=== PATIENT | female | born 1980 | race Caucasian/White ===

== ENCOUNTER 2019-07-31 01:59 | Observation (INO) | payer OTHER, SELFPAY ==
[2019-07-31] MEDS ORDERED: Morphine 4 MG/ML VIAL ONE (02:14)
[2019-07-31] MEDS ORDERED: Pantoprazole 40 MG VIAL ONE (02:46)
[2019-07-31] MEDS ORDERED: Acetaminophen 650 MG Suppository PR PRN (03:13)
[2019-07-31] MEDS ORDERED: Acetaminophen 325 MG TAB PO PRN (03:13)
[2019-07-31] MEDS ORDERED: Sodium Chloride 0.9% 1,000 ML IV SCH (03:15)
--- NOTE | 2019-07-31 03:37 | PDOC.HHP ---
Hospitalist HPI - History of Present Illness diarrhea History of Present Illness: Ms Ledezma is a pleasant 38 year old female with PMH of a possible ulcer. She presents to the ER for diarrhea and nausea x 24 hours. She has had 10+ episodes of diarrhea at this time, denies mucous or blood in stools and says it is just like "water" coming out. Denies vomiting but has severe nausea when taking anything PO. She also states she has not had fever, exposure to ill contacts, no travel, no new medications. Her pain begins in her mid upper epigastric area and travels down to her lower abdomen. She feels "bloated" and confirms minimal relief with the provided pain medications. PCP: Moses Romero ED Course: She was first seen in the ED in [place] where they completed an abdominal CT and lab work. They administered sucralfate 10 ml, fentanyl 50mcg, metronidazole 500 mg, cipro 500 mg, potassium chloride 40 meq, zofran 4 mg, 1L NS, and morphine 4 mg. She was transferred here for pain control and GI consult. Once transferred here she was given an additional morphine 4mg and admitted to medical unit. Hospitalist ROS - Review of Systems Constitutional: denies: fever, chills, sweats, weakness, malaise, other Eyes: denies: pain, vision change, conjunctivae inflammation, eyelid inflammation, redness, other ENT: denies: ear pain, ear discharge, nose pain, nose discharge, nose congestion , mouth pain, mouth swelling, throat pain, throat swelling, other Respiratory: denies: cough, dry, shortness of breath, hemoptysis, SOB with excertion, pleuritic pain, sputum, wheezing, other Cardiovascular: denies: chest pain, palpitations, orthopnea, paroxysmal noc. dyspnea, edema, light headedness, other Gastrointestinal: reports: nausea, abdominal pain, diarrhea Genitourinary: denies: dysuria, frequency, incontinence, hematuria, retention, other Musculoskeletal: denies: neck pain, shoulder pain, arm pain, back pain, hand pain, leg pain, foot pain, other Skin: denies: rash, lesions, gertrude, bruising, other All other systems reviewed; all pertinent +/- noted in HPI/Subj - Medication Medications: Allergies: amxicillin, PCN Home medications: Prilosec OTC daily Hospitalist History - Past Medical History Source: patient Cardiac: reports: no pertinent history Pulmonary: reports: no pertinent history ENGINEERING SPECIALIST: reports: no pertinent history Gastrointestinal: reports: Other (ulcer) Heme/Onc: reports: no pertinent history Hepatobiliary: reports: no pertinent history Psych: reports: no pertinent history Musculoskeletal: reports: no pertinent history Rheumatologic: reports: no pertinent history Infectious Disease: reports: no pertinent history ENT: reports: no pertinent history Renal/: reports: no pertinent history Endocrine: reports: no pertinent history Dermatology: reports: no pertinent history - Past Surgical History Past Surgical History: reports: Tubal Ligation Other Surgical History: L elbow surgery Novasure ablation - Family History Family History: reports: no pertinent history - Social History Smoking Status: Never smoker Alcohol: reports: None Drugs: reports: none Living Situation: With Family Activity level: independent ambulation - Exam General Appearance: NAD, awake alert General - other findings: VS: BP 120/79 P 83 RR 20 T 98.8 O2 Sat 96% RA Eye: PERRL ENT: normocephalic atraumatic, dry oral mucosa Neck: supple, symmetric, no JVD, no lymphadenopathy Heart: RRR, no murmur, no gallops, no rubs Respiratory: CTAB, no wheezes, no rales, no ronchi Gastrointestinal: tender to palpation, distended Gastrointestinal - other findings: hyperactive Extremities: no cyanosis, no edema Psychiatric: normal affect, normal behavior Hospitalist Results - Labs Result Diagrams: 07/31/19 05:17 07/31/19 05:17 Lab results: Laboratory Tests from [facility] 07/30/19 07/30/19 07/30/19 21:40 21:40 21:40 WBC 6.7 RBC 5.10 Hgb 14.5 Hct 44.9 Sodium 140 Potassium 3.0 L Chloride 105 Anion Gap 14 BUN 10 Creatinine 1.06 Estimated GFR (MDRD) 58 Glucose 135 H Calcium 9.1 Magnesium 2.0 - Radiology Interpretation CT scan - abdomen Status: image reviewed by tn Hospitalist H&P A/P - Problem (1) Ileitis Code(s): K52.9 - NONINFECTIVE GASTROENTERITIS AND COLITIS, UNSPECIFIED Status : Acute (2) Diarrhea Code(s): R19.7 - DIARRHEA, UNSPECIFIED Status: Acute (3) Nausea Code(s): R11.0 - NAUSEA Status: Acute (4) Hypokalemia Code(s): E87.6 - HYPOKALEMIA Status: Acute - Plan Plan: Ileitis: Consult GI in am NPO IVF Continue IV antibiotics Hypokalemia: Continue K replacement- most likely from diarrhea recheck BMP and CBC in am Diarrhea: Will send stool for studies to rule out other infectious processes Nausea: Treat with PRNs, hopefully will subside soon GI and DVT prophylaxis Full code Surrogate decision maker: , Bo Lofton [phone]
[2019-07-31] MEDS ORDERED: Sodium Chloride 0.9% (PF) 10 ML VIAL FS PRN (03:50)
[2019-07-31] MEDS: Dextrose 5 %-0.45 % NaCl 1,000 ML IV SCH ×4 (05:17→19:37)
[2019-07-31] MEDS: Ciprofloxacin 500 MG TAB PO SCH ×2 (05:18→19:35)
[2019-07-31 05:36] VITALS: BMI 31.6
[2019-07-31 05:40] LABS: #Lymphocytes 1.1 thou/uL (1.20-3.40); #Monocytes 0.4 thou/uL (0.11-0.59); #Neutrophils 3.7 thou/uL (1.40-6.50); %Basophils 0.4 % (0.0-1.0); %Eosinophils 0.4 % (0.0-10.0); %Lymphocytes 20.3 % (21.0-51.0); %Monocytes 7.2 % (0.0-10.0); %Neutrophils 71.7 % (42.0-75.0); Hemoglobin 12.9 g/dL (12.0-16.0); Mean Corpuscular HGB CONC 33.5 g/dL (32.0-36.0); Mean Corpuscular Hemoglobin 28.9 pg (27.0-31.0); Mean Corpuscular Volume 86.3 fL (78.0-98.0); Mean Platelet Volume 6.9 fL (7.4-10.4); Platelet Count 200 thou/uL (130-400); RBC Distribution Width 12.3 % (11.5-14.5); Red Blood Cell (RBC) Count 4.48 mill/uL (4.20-5.40); White Blood Cell (WBC) Count 5.2 thou/uL (4.8-10.8)
[2019-07-31 05:54] LABS: Anion Gap 9 mmol/L (10-20); BUN (Urea Nitrogen) 9 mg/dL (7.0-18.7); Calc. Creatinine Clearance 118 mL/min (70-130); Calcium 7.7 mg/dL (7.8-10.44); Carbon Dioxide 24 mmol/L (22-29); Chloride 109 mmol/L (98-107); Estimated GFR-MDRD 80; Glucose 103 mg/dL (70-105); Potassium 3.4 mmol/L (3.5-5.1); Sodium 139 mmol/L (136-145)
[2019-07-31] MEDS: Morphine 2 MG/ML SYRINGE SLOW IVP PRN ×3 (06:45→19:36)
[2019-07-31] MEDS: Pantoprazole 40 MG VIAL IVP SCH (08:36)
[2019-07-31] MEDS: metroNIDAZOLE 500 MG in Premix Bag 1 BAG IVPB SCH ×2 (08:36→15:46)
[2019-07-31] MEDS ORDERED: Famotidine/PF 20 mg/2ml Vial SLOW IVP SCH (09:00)
[2019-07-31] MEDS ORDERED: Potassium Chloride 20 MEQ TAB PO SCH (10:15)
[2019-07-31] MEDS ORDERED: Sodium Chloride 0.9% 500 ML IV SCH (10:30)
--- NOTE | 2019-07-31 17:30 | CON ---
DATE OF CONSULTATION: 07/31/2019 CHIEF COMPLAINT: Abdominal pain and diarrhea. HISTORY OF PRESENT ILLNESS: Ms. Ledezma is a 38-year-old woman, who woke up at 2 o'clock yesterday morning with the urge to have a bowel movement. She had multiple brown liquidy stools. She then had onset of sharp to cramping pain that went all the way down from the epigastric region to the periumbilical region and across her lower abdomen as well. She has had tenderness over the right lower quadrant with that also. She had nausea, but no vomiting. No obvious exposures to foods out of the ordinary or other sick contacts. She has had no fever with this. No blood in the stool or black stools. Her weight has been stable. She has not had chronic problems with abdominal pain or diarrhea; however, she has had some chronic reflux symptoms. She takes ibuprofen once a week for headaches. She has had some epigastric bloating, reflux, and indigestion, for which, she has been taking ranitidine daily over the last 2 years. Couple of years ago, she went in with those symptoms originally with the epigastric discomfort and she was clinically told that she had a peptic ulcer and she started the ranitidine at that point. She stopped taking the ranitidine 2 weeks ago as it has been pulled from the shelves. She instead started taking Prilosec once daily couple of weeks ago. She has not been having heartburn, but it was concerned that the change in medicine could be related to her acute symptoms. PAST MEDICAL HISTORY: Headache. PAST SURGICAL HISTORY: She had cervical ablation and tubal ligation. MEDICATIONS: Prior to admission, Prilosec OTC once daily. She takes ibuprofen around once per week. ALLERGIES: PENICILLIN. FAMILY HISTORY: Negative for GI malignancy or inflammatory bowel disease. SOCIAL HISTORY: She has smoked intermittently in the past, but not recently. No drugs. No alcohol. REVIEW OF SYSTEMS: Negative x10 systems reviewed except as stated in the history of present illness. PHYSICAL EXAMINATION: VITAL SIGNS: Temperature 99.2, pulse 89, blood pressure 112/75. GENERAL: She is in no acute distress. Alert and oriented x3. HEENT: Eyes have no scleral icterus. Oropharynx is clear without lesions. No cervical or supraclavicular lymphadenopathy. LUNGS: Clear to auscultation bilaterally. HEART: Regular rate and rhythm without murmur. ABDOMEN: Soft. She is diffusely tender to palpation, but more so in the right lower quadrant. Her bowel sounds are present. EXTREMITIES: No lower extremity edema. Cranial nerves are grossly intact. LABORATORY DATA: White blood cell count 5.2, hemoglobin 12.9, platelets 200. Creatinine 0.8, bilirubin 0.5, AST 12, ALT 14, alkaline phosphatase 71, albumin 4.0, lipase 49. She had a CT scan of the abdomen and pelvis last night, which showed marked thickening of the terminal ileum. Fluid was noted in the cecum and right colon. IMPRESSION: 1. Periumbilical to right lower quadrant abdominal pain. 2. Acute liquidy nonbloody diarrhea. 3. Abnormal CT scan showing thickening of the terminal ileum. Overall, these findings are most consistent with an acute infectious gastroenteritis. Her stool studies are currently pending. Given the short duration of less than 2 days of symptoms, it is unlikely that she has had a new sudden onset of inflammatory bowel disease at age 38. She has had some chronic reflux symptoms over the last couple of years and it is possible that this is the presentation of Crohn's. RECOMMENDATIONS: 1. Await stool studies. 2. Support with IV fluids and advance to clear liquid diet as she tolerates. 3. She is currently being covered with ciprofloxacin and metronidazole. 4. If she fails to improve from an acute infectious gastroenteritis standpoint, appears to be showing more of a chronic pattern, then upper and lower endoscopy can be performed. I would rather do this in a couple of weeks rather than the immediate setting. Either way, I think she should ultimately undergo colonoscopy at least given the changes on CT scan, but again, this would be better delayed until after an acute process would have time to resolve. There is no indication for steroids. Job ID: [id number]
[2019-08-01] MEDS: metroNIDAZOLE 500 MG in Premix Bag 1 BAG IVPB SCH ×4 (00:52→23:58)
[2019-08-01] MEDS: Dextrose 5 %-0.45 % NaCl 1,000 ML IV SCH ×3 (06:12→16:16)
[2019-08-01] MEDS: Ciprofloxacin 500 MG TAB PO SCH ×2 (06:12→20:13)
[2019-08-01 06:49] LABS: Hemoglobin 13.1 g/dL (12.0-16.0); Mean Corpuscular HGB CONC 33.5 g/dL (32.0-36.0); Mean Corpuscular Hemoglobin 29.1 pg (27.0-31.0); Mean Corpuscular Volume 86.8 fL (78.0-98.0); Mean Platelet Volume 6.7 fL (7.4-10.4); Platelet Count 201 thou/uL (130-400); RBC Distribution Width 12.2 % (11.5-14.5); White Blood Cell (WBC) Count 5.4 thou/uL (4.8-10.8)
[2019-08-01 07:06] LABS: Anion Gap 9 mmol/L (10-20); BUN (Urea Nitrogen) Less than 4 mg/dL (7.0-18.7); Calc. Creatinine Clearance 126 mL/min (70-130); Carbon Dioxide 23 mmol/L (22-29); Chloride 110 mmol/L (98-107); Estimated GFR-MDRD 86; Glucose 100 mg/dL (70-105); Potassium 3.2 mmol/L (3.5-5.1); Sodium 139 mmol/L (136-145)
[2019-08-01] MEDS: Pantoprazole 40 MG VIAL IVP SCH (08:13)
[2019-08-01 09:22] LABS: Band 6 % (5-11); Eosinophils 3 % (0-10); Lymphocytes 26 % (21-51); MDiff Complete? YES; Monocytes 2 % (0-10); Neutrophil 57 % (42-75); Platelet Morphology Comment Appears Adequate; RBC Morphology Normal; Reactive Lymphocytes 6 % (0-10)
--- NOTE | 2019-08-01 11:38 | PRG ---
DATE OF SERVICE: SUBJECTIVE: The patient feels much better. There is resolution of abdominal pain. Her diarrhea is less in term of volume and frequency, but still liquidy. She is tolerating liquid diet. PHYSICAL EXAMINATION: VITAL SIGNS: Temperature is 98.2, blood pressure 122/79, pulse of 83. GENERAL: She is alert, conversant, does not appear in any distress. HEENT: Shows anicteric sclerae. Oropharynx is clear and moist. NECK: Supple. CV: Shows normal S1, S2. Regular rate and rhythm. CHEST: Shows breath sounds. ABDOMEN: Soft, mildly protuberant. No distention. No tympany. There is some mild tenderness. No guarding or rebound. She has active bowel sounds. EXTREMITIES: Show no edema. LABORATORY DATA: WBCs 5.4, hemoglobin 13.1, platelet count of 201. Sodium 139, potassium 3.2, chloride 110, CO2 of 23, creatinine 0.75. Stool lactoferrin is positive. Campylobacter antigen negative. O and P positive for cryptosporidium antigen. Stool culture showed normal enteric arina and stool C diff antigen and toxin are negative. ASSESSMENT: Acute onset abdominal pain associated with nausea, vomiting, diarrhea with CT finding of distal ileitis. Symptomatically, she is much better with resolution of pain, nausea, vomiting, and diarrhea is becoming much less. Cryptosporidium antigen is positive, but typically this does not cause visible enteritis or ileitis. Cryptosporidium infection tends to be a self limiting diarrheal illness in immune competent host and just require supportive therapy. Crohn disease is a possibility but appears to be unlikely at this point. RECOMMENDATION: 1. Advance diet and activity. 2. The patient can be discharged tomorrow if she continues to improve and tolerate diet with outpatient followup with Dr. Salazar. If symptoms persists, outpatient endoscopy can be considered. Job ID: [id number] [facility]
--- NOTE | 2019-08-01 13:58 | PDOC.HOSPP ---
- Subjective Encounter Date: 08/01/19 Encounter Time: 10:45 Subjective: had 3 episodes of diarrhea from this am, feels much better than yesterday no nausea, has occasional abd colic on movement - Objective Vital Signs & Weight: Vital Signs (12 hours) Temp Pulse Resp BP BP Pulse Ox 08/01/19 08:00 98 08/01/19 07:44 98.2 F 83 17 122/79 98 08/01/19 04:00 98.2 F 77 16 150/67 H 98 Weight Admit Weight 173 lb Weight 173 lb 3 oz I&O: 07/31/19 08/01/19 08/02/19 06:59 06:59 06:59 Intake Total 2780 240 Balance 2780 240 Result Diagrams: 08/01/19 06:20 08/01/19 06:20 Hospitalist ROS - Medication Medications: Active Medications Generic Name Dose Route Start Last Admin Trade Name Freq PRN Reason Stop Dose Admin Acetaminophen 650 mg 07/31/19 03:13 07/31/19 08:49 Tylenol PO 650 mg Q4H PRN Administration Headache/Fever/Mild Pain (1-3) Ciprofloxacin 500 mg 07/31/19 06:00 08/01/19 06:12 Cipro PO 500 mg 0600,2000 NICOLE Administration Metronidazole 500 mg/ Device 100 mls @ 100 mls/hr 07/31/19 08:00 08/01/19 08: 13 IVPB 100 mls 0800,1600,[id number] NICOLE Administration Dextrose/Sodium Chloride 1,000 mls @ 100 mls/hr 07/31/19 03:30 08/01/19 09:59 D5 1/2 Ns IV Not Given .Q10H NICOLE Morphine Sulfate 2 mg 07/31/19 03:22 07/31/19 19:36 Morphine SLOW IVP 2 mg Q4H PRN Administration Severe Pain (7-10) Pantoprazole Sodium 40 mg 07/31/19 09:00 08/01/19 08:13 Protonix IVP 40 mg DAILY NICOLE Administration - Exam General Appearance: awake alert Eye: PERRL, anicteric sclera ENT: no oropharyngeal lesions, moist mucosa Neck: supple, no JVD Heart: RRR, no murmur Respiratory: no wheezes, no rales Gastrointestinal: soft, non-distended, normal bowel sounds, no guarding, no rigidity Extremities: no cyanosis, no edema Neurological: cranial nerve grossly intact, no focal deficits Psychiatric: normal affect, A&O x 3 Hosp A/P (1) Gastroenteritis Code(s): K52.9 - NONINFECTIVE GASTROENTERITIS AND COLITIS, UNSPECIFIED Status : Acute (2) Moderate dehydration Code(s): E86.0 - DEHYDRATION Status: Resolved (3) Intractable nausea and vomiting Code(s): R11.2 - NAUSEA WITH VOMITING, UNSPECIFIED Status: Resolved (4) Abdominal pain Code(s): R10.9 - UNSPECIFIED ABDOMINAL PAIN Status: Acute Qualifiers: Abdominal location: right lower quadrant Qualified Code(s): R10.31 - Right lower quadrant pain (5) Hypokalemia Code(s): E87.6 - HYPOKALEMIA Status: Acute - Plan gentle iv hydration stool cultures are -ve except for cryptosporidium is on cipro, flagyl, protonix, morphine prn, replace potassium d/w advance diet, likely dc plan in am if diarrhea is controlled will have outpt colonoscopy
[2019-08-02] MEDS: Ciprofloxacin 500 MG TAB PO SCH (06:13)
[2019-08-02] MEDS: Dextrose 5 %-0.45 % NaCl 1,000 ML IV SCH (06:15)
[2019-08-02 07:01] LABS: Mean Corpuscular Hemoglobin 28.3 pg (27.0-31.0); Mean Corpuscular Volume 85.7 fL (78.0-98.0); Platelet Count 240 thou/uL (130-400); RBC Distribution Width 12.4 % (11.5-14.5); Red Blood Cell (RBC) Count 4.58 mill/uL (4.20-5.40); White Blood Cell (WBC) Count 5.2 thou/uL (4.8-10.8)
[2019-08-02 07:11] LABS: Anion Gap 9 mmol/L (10-20); BUN (Urea Nitrogen) Less than 4 mg/dL (7.0-18.7); Calc. Creatinine Clearance 139 mL/min (70-130); Calcium 8.1 mg/dL (7.8-10.44); Carbon Dioxide 24 mmol/L (22-29); Chloride 108 mmol/L (98-107); Estimated GFR-MDRD Greater than 90; Glucose 104 mg/dL (70-105); Potassium 3.2 mmol/L (3.5-5.1); Sodium 138 mmol/L (136-145)
[2019-08-02 07:37] VITALS: TEMP 98.1
[2019-08-02] MEDS ORDERED: Potassium Chloride 20 MEQ TAB PO SCH (08:00)
[2019-08-02 08:27] LABS: Eosinophils 1 % (0-10); Lymphocytes 31 % (21-51); MDiff Complete? YES; Monocytes 4 % (0-10); Neutrophil 62 % (42-75); RBC Morphology Normal; Reactive Lymphocytes 2 % (0-10)
[2019-08-02] MEDS: Pantoprazole 40 MG VIAL IVP SCH (09:28)
[2019-08-02] MEDS: metroNIDAZOLE 500 MG in Premix Bag 1 BAG IVPB SCH (09:28)
[2019-08-02 11:49] VITALS: BP 137/93
--- NOTE | 2019-08-02 15:47 | DIS ---
DATE OF ADMISSION: 07/31/2019 DATE OF DISCHARGE: 08/02/2019 DISCHARGE DISPOSITION: To home. PRIMARY DISCHARGE DIAGNOSES: 1. Gastroenteritis, resolving. 2. Moderate dehydration with intractable nausea, vomiting, and diarrhea, resolved. 3. Abdominal pain secondary to above, resolved. 4. Hypokalemia, resolved. PROCEDURES DONE DURING HOSPITALIZATION: CT of the abdomen and pelvis done on the day of admission showed findings suspicious for thickening of the terminal ileum. Stool for C difficile was negative. Campylobacter antigen and Shiga toxins were negative. Her stool was positive for Cryptosporidium antigen, negative for Giardia antigen. H and H of 13 and 39, platelet count 240. BUN 4, creatinine 0.6. Urine test was negative. DISCHARGE MEDICATIONS: Ciprofloxacin 500 mg twice daily for 3 days, Flagyl 500 mg p.o. 3 times daily for 3 days. 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 The patient to follow up with Dr. Romero at [facility] in [place], [place] her PCP in 1 week. BRIEF COURSE DURING HOSPITALIZATION: The patient initially came in with complaints of severe nausea, vomiting, and diarrhea. The diarrhea was watery, more than 10 times per day. In view of this history, the patient has had stool studies done , all of which came back negative for infectious etiology. Cryptosporidium likely is not the cause for her gastroenteritis at present. She was evaluated by Dr. Francisco Salazar and Dr. Perales for Gastroenterology. Her diarrhea has completely resolved at the time of discharge. She is tolerating oral solid diet. The patient likely had viral gastroenteritis. In view of CAT scan findings of inflammation in the terminal ileum, the patient has been advised to follow up with Dr. Francisco Salazar in 2 to 3 weeks for possible outpatient colonoscopy. Please note, I have seen and examined the patient on the day of discharge. Job ID: [id number] [facility]
== END 2019-08-02 13:10 | disposition home or self-care (01) ==
LOC: ERS 01:59 → T4-A 02:38
PROVIDERS: ADMIT Internal Medicine; ATTEND Internal Medicine
DX: K52.9 Noninfective gastroenteritis and colitis, unspecified (principal); E86.0 Dehydration; E87.6 Hypokalemia; Z87.891 Personal history of nicotine dependence; Z79.899 Other long term (current) drug therapy; Z88.0 Allergy status to penicillin
CPT/HCPCS: 36415; 80048; 83630; 85007; 85025; 85027; 87045; 87046; 87328; 87329; 87427; 87449; 96361; 96365; 96366; 96374; 96375; 96376; C9113; G0378; J2270